=== PATIENT | male | born 1960 | race Caucasian/White ===

== ENCOUNTER 2018-01-16 22:37 | Emergency (ER) | payer SELFPAY ==
[~2018-01-16] VITALS: Ht 170.2 cm; Wt 61.2 kg
[2018-01-16 22:47] VITALS: BP 151/86
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
[2018-01-16 22:52] VITALS: BP 151/86
== END 2018-01-16 23:00 ==
LOC: EMR 22:46
DX: S09.90XA Unspecified injury of head, initial encounter (principal); Y04.2XXA Assault by strike against or bumped into by another person, initial encounter; Y92.89 Other specified places as the place of occurrence of the external cause; Z02.89 Encounter for other administrative examinations
CPT/HCPCS: 99283